=== PATIENT | female | born 1945 | race Caucasian/White ===

== ENCOUNTER 2024-01-30 14:09 | Outpatient (REF) | payer MEDICARE, SELFPAY ==
--- NOTE | ~2024-01-30 | XR_ITS ---
EXAMINATION: XR CHEST CLINICAL INFORMATION: Other specified symptoms and signs involving the circulatory system. COMPARISON: None available. TECHNIQUE: 2 views of the chest were obtained. FINDINGS: Degenerative changes in the thoracic spine. There is no gross pneumothorax. S-shaped thoracolumbar scoliosis. Heart size within normal limits. No pleural effusion. Mild, left greater than right, bibasilar patchy opacities likely represent atelectasis/scar, although an inflammatory/infectious process should also be considered. XR/XR chest 2V IMPRESSION: Mild, left greater than right, bibasilar patchy opacities likely represent atelectasis/scar, although an inflammatory/infectious process should also be considered.
== END 2024-01-30 14:10 | disposition home or self-care (01) ==
LOC: HO.XRAY 14:09
PROVIDERS: PCP Internal Medicine; Visit Provider Hospitalist
DX: R09.89 Other specified symptoms and signs involving the circulatory and respiratory systems (principal); J45.40 Moderate persistent asthma, uncomplicated
CPT/HCPCS: 71046; 99202

== ENCOUNTER 2024-01-30 14:09 | Outpatient (AMB) | payer MEDICARE, SELFPAY ==
[2024-01-30 14:14] VITALS: BP 120/60; PULSE 80; O2SAT 98; BMI 33.5
--- NOTE | 2024-01-30 14:14 | MHC.OFFVIS ---
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 The patient is an 79 year woman with known history of asthma. The patient had been followed closely by a local paraprofessional education assistant who since retired. Patient states that overall she has been doing very well from a respiratory status. She does have her occasional flare-up does require an antibiotics and rednisone. she does have a maintenance inhaler, Bevespi. She does use it as needed basis. Overall the patient is very functional. Denies any underlying respiratory Symptoms at this time. on examination the patient does have some minimal left base. Therefore will go ahead and request a chest x-ray this time. Clinically the patient is doing well without any symptoms. Will probably have her do a spirometry during the next visit. otherwise patient is without any other complaints. I do believe that she will benefit from a different inhaler. Although right now she still has to Bevespi inhalers at home. Therefore will continue to use which she has available specially since she is doing well from a respiratory status at this time. Will follow-up in 4-6 months. If the patient develops any worsening symptoms prior to that she will call for an earlier assessment. [facility] Medical History (Updated 02/01/24 @ 23:26 by Fernando Khan MD) Asthma Chest crackles Social History (Updated 01/30/24 @ 14:21 by KANDIS Kaiser) Patient Tobacco Use Status: Never used Tobacco Review of Systems Const Denies fever(s) Eyes Reports no additional complaints ENT Reports nasal congestion Card Denies chest pain Resp Reports cough and Denies wheezing Musc Reports no additional complaints Skin/Breast Denies rash Neuro Reports no additional complaints Aller/Immun Denies wheezing Physical Exam Vital Signs: Last Vital Signs Pulse 80 01/30/24 14:14 BP 120/60 01/30/24 14:14 Pulse Ox 98 01/30/24 14:14 Oxygen Delivery Method Room Air 01/30/24 14:14 BMI result Body Mass Index 33.5 Const General: comfortable HEENT Head: Yes normocephalic Neck Neck: Yes supple Chest Chest palpation & inspection: normal inspection of the chest Resp Effort & Inspection: normal respiratory effort Auscultation: crackles and diminished lung sounds Cardio Heart sounds: S1 normal heart sound present and S2 normal heart sound present GI Palpation (GI): Soft to palpation Skin General skin exam: no rashes or lesions noted Extrem General: Yes no clubbing, cyanosis or edema Assessment & Plan Assessment & Plan (1) Chest crackles: Code(s): R09.89 - Other specified symptoms and signs involving the circulatory and respiratory systems (2) Asthma: Code(s): J45.909 - Unspecified asthma, uncomplicated Qualifiers: Asthma severity: moderate Asthma persistence: persistent Asthma complication type: uncomplicated Qualified Code(s): J45.40 - Moderate persistent asthma, uncomplicated Plan CXR Continue Bevespi for now, would either add ICS or change to ICS/LABA combination CARLOS as needed Spirometry during the next visit F/u 4-6 months or sooner if worsening symptoms Orders: Orders XR chest 2V 01/30/24 R09.89 - Other specified symptoms and signs involving the circulatory and respiratory systems Coding Level of Care Code New Pt Level 4 (96941) Diagnoses Chest crackles R09.89 Moderate persistent asthma without complication J45.40 Asthma severity: moderate Asthma persistence: persistent Asthma complication type: uncomplicated
== END 2024-01-30 14:54 | disposition home or self-care (01) ==
PROVIDERS: PCP Internal Medicine; Visit Provider Hospitalist
DX: R09.89 Other specified symptoms and signs involving the circulatory and respiratory systems (principal); J45.40 Moderate persistent asthma, uncomplicated
CPT/HCPCS: 99204

== ENCOUNTER 2024-07-14 15:25 | Outpatient (AMB) | payer MEDICARE, SELFPAY ==
--- NOTE | 2024-07-14 15:37 | MHC.OFFVIS ---
Vital Signs 07/14/24 15:39 Height 4 ft 11 in Weight 160 lb BMI 32.3 BP 118/84 Blood Pressure Location Lt brachial Position Sitting Pulse 83 Pulse Source Pulse Oximeter Pulse Oximetry (%) 100 Oxygen Delivery Method Room Air Intake Visit Reasons: productive cough, chest congestion Allergies Sulfa (Sulfonamide Antibiotics) Allergy (Severe, Verified 07/14/24 15:44) Rash HPI HPI productive cough, chest congestion: Details: Lina is a pleasant 79 year old, never smoker, with underlying asthma. She is under the care of Dr. Khan and presents for an acute visit today. She reports being treated with Augmentin x 7 days, finishing yesterday for sore throat and chest congestion, chills and fever highest 104 last Friday. Negative for COVID, flu and RSV. She has had resolution of fever, chills and sore throat however asthma symptoms persist. For the last 5 days she reports worsening dyspnea on exertion, wheezing and cough, occasionally with yellow sputum. She is prescribed Bevespi however does not use consistently. She started using the past few days with minimal effect. [facility] Medical History (Updated 07/14/24 @ 16:31 by Julianne Benjamin NP) Asthma Chest crackles Social History Patient Tobacco Use Status: Never used Tobacco Review of Systems Const Denies excessive sweating, Denies headache(s) and Denies night sweats Eyes Denies dry eyes, Denies irritation and Denies itchy eyes ENT Reports Normal hearing present, Denies headache(s), Denies nasal congestion, Denies nasal discharge, Denies post nasal drip and Denies sore throat Card Denies chest pain, Denies chest pain at rest, Denies chest pain with activity, Denies claudication, Denies leg edema, Denies orthopnea and Denies paroxysmal nocturnal dyspnea Resp Denies chest congestion, Denies excessive phlegm production, Denies pain on inspiration, Denies pain with cough and Denies stridor Musc Denies myalgias Neuro Reports Normal hearing present and Denies headache(s) Endo Denies excessive sweating Kashif/Lymph Denies lymphadenopathy Aller/Immun Denies itchy eyes and Denies seasonal rhinorrhea Physical Exam Vital Signs: Last Vital Signs Pulse 83 07/14/24 15:39 BP 118/84 07/14/24 15:39 Pulse Ox 100 07/14/24 15:39 Oxygen Delivery Method Room Air 07/14/24 15:39 BMI result Body Mass Index 32.3 Const General: cooperative, healthy appearing, comfortable, no acute distress, well developed and alert Nutritional Appearance: obese Orientation/consciousness: patient oriented x3 Limitations: no limitations HEENT Head: Yes normal to inspection, Yes normocephalic and Yes atraumatic Ears: hearing grossly normal bilaterally and external ears normal Eyes General: appearance normal, both eyes and all related structures Eyelids: Yes eyelids normal Sclerae: sclerae normal EOM: EOMs intact bilaterally Neck Neck: Yes normal visual inspection and Yes no lymphadenopathy Lymphatic: no lymphadenopathy noted Chest Chest palpation & inspection: normal inspection of the chest Resp Effort & Inspection: normal respiratory effort, able to speak in complete sentences, no audible wheezes, Actively coughing Quality: dry, no stridor, not tachypneic, no tripod positioning and no use of accessory muscles Auscultation: wheezes (moderately improved with albuterol neb) expiratory wheezes and throughout Cardio Jugular venous distension: no JVD Rate: regular rate Rhythm: regular rhythm Skin Other: warm, dry General skin exam: no rashes or lesions noted Neuro General: patient oriented x3 Cranial nerves: Yes Normal hearing present Cognition (Neuro): normal cognition Gait exam (Neuro): Normal gait present Extrem General: Yes normal to inspection, Yes capillary refill normal, Yes no clubbing, cyanosis or edema and Yes no pedal edema Psych Appearance: grossly normal and well kempt Speech and movement: Normal speech and movement present and Clear speech present Affect: normal affect Attitude: cooperative Thought process: Normal thought process present Thought content: Normal thought content present Insight: Good insight present (Psych) Judgement: Good judgement present (Psych) Office Procedures Nebulizer Treatment Nebulizer Treatment [id number]/MDI RX initial, or Nebulizer Subsequent Treatment Office Meds albuterol sulfate 2.5 mg/3 mL (0.083 %) solution for nebulization Performing Provider: Julianne Benjamin NP Performing Location: [facility] [place] [facility] [place] [facility] Administered by: Genny Montenegro LPN on 07/14/24 16:37 Dose Route Admin Location Dispensed Lot Number Expiration Date [facility] Fabrication Supervisor 2.5 mg inhalation 3 mL [id number] 10/09/24 4328-9845-59 [facility] Assessment & Plan Assessment & Plan (1) Cough: Code(s): R05.9 - Cough, unspecified Category: Medical (2) Asthma: Code(s): J45.909 - Unspecified asthma, uncomplicated Category: Medical Qualifiers: Asthma severity: moderate Asthma persistence: persistent Asthma complication type: uncomplicated Qualified Code(s): J45.40 - Moderate persistent asthma, uncomplicated Plan Lina presents with acute asthma exacerbation. She was given albuterol neb in office with moderate improvement. Will send prednisone and switch Bevespi to Breo. Discussed importance of adherence as well as good oral hygiene to prevent thrush. She is aware if symptoms persist after completing prednisone to call office, if worsen seek emergent care. Will also send for CXR as persistent cough despite recent antibiotic to assess for infectious component. All questions were answered and patient is in agreement of plan. Will follow up with Dr. Khan for regularly scheduled appointment. Orders: Orders XR chest 2V Today R05.9 - Cough, unspecified AMB Nebulizer Treatment Today J45.40 - Moderate persistent asthma, uncomplicated Medications: New prednisone 40 mg (2 x 20 mg) PO DAILY 10 tabs 0RF fluticasone furoate-vilanterol 100-25 mcg/dose (Breo Ellipta) stop bevespi, start breo 1 inh inhalation DAILY 60 ea 3RF Coding Level of Care Code Est Pt Level 4 (11786) Diagnoses Cough R05.9 Moderate persistent asthma without complication J45.40 Asthma severity: moderate Asthma persistence: persistent Asthma complication type: uncomplicated CPT Codes Nebulizer Treatment - Nebulizer Treatment, initial or subsequent: [id number]/MDI RX initial, or Nebulizer Subsequent Treatment ([id number])
[2024-07-14 15:39] VITALS: BP 118/84; PULSE 83; O2SAT 100; BMI 32.3
== END 2024-07-14 16:41 | disposition home or self-care (01) ==
PROVIDERS: PCP Internal Medicine; Visit Provider Nurse Practitioner Family
DX: R05.9 Cough, unspecified (principal); J45.40 Moderate persistent asthma, uncomplicated
CPT/HCPCS: 99214

== ENCOUNTER → 2024-07-14 15:25 | Outpatient (BNVA) | payer MEDICARE, SELFPAY | PROVIDERS: PCP Internal Medicine; Visit Provider Nurse Practitioner Family | DX: R05.9 Cough, unspecified (principal); J45.40 Moderate persistent asthma, uncomplicated | CPT/HCPCS: 94640; 99212 ==

== ENCOUNTER 2024-07-30 10:45 | Outpatient (AMB) | payer MEDICARE, SELFPAY ==
[2024-07-30 10:58] VITALS: BP 128/60; PULSE 73; O2SAT 99; BMI 32.3
--- NOTE | 2024-07-30 10:58 | A.OFFVIS_ITS ---
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 The patient had been followed closely by a local registered nurse first assistant who since retired. Patient states that overall she has been doing very well from a respiratory status. She does have her occasional flare-up does require an antibiotics and rednisone. she does have a maintenance inhaler, Bevespi. She does use it as needed basis. Overall the patient is very functional. Denies any underlying respiratory Symptoms at this time. on examination the patient does have some minimal left base. Therefore will go ahead and request a chest x-ray this time. Clinically the patient is doing well without any symptoms. Will probably have her do a spirometry during the next visit. otherwise patient is without any other complaints. I do believe that she will benefit from a different inhaler. Although right now she still has to Bevespi inhalers at home. Therefore will continue to use which she has available specially since she is doing well from a respiratory status at this time. Will follow-up in 4-6 months. If the patient develops any worsening symptoms prior to that she will call for an earlier assessment. 07/30/2024 the patient is here for a follow-up visit. The patient is still not feeling well. Apparently several weeks ago she started developing URI like symptoms. She was evaluated and given a course of antibiotics. Then she did follow-up with Pulmonary. She did have some wheezing in an asthma exacerbation secondary to her likely viral syndrome in that point she was placed on prednisone. When she went on prednisone her symptoms improved dramatically. She did feel better. She also continue her respiratory therapy. However then she completed the prednisone her symptoms have slowly coming back. She is concerned she is going to going backwards. She is coughing productive in nature. She did finish a course of Augmentin already. She has not taking any antibiotics to cover atypicals. Therefore a Z-Basilio would be reasonable for her. She does have some wheezing on examination. Does have prolonged expiratory phase but otherwise stable. I did review her last chest x-ray that she had back in 07/15/2024 demonstrating no acute disease which is reassuring. [facility] Medical History (Updated 08/01/24 @ 20:42 by Fernando Khan MD) Bronchitis Asthma Chest crackles Social History Patient Tobacco Use Status: Never used Tobacco Review of Systems Const Denies fever(s) Eyes Reports no additional complaints ENT Reports nasal congestion Card Denies chest pain Resp Reports chest congestion, Reports cough and Reports wheezing Musc Reports no additional complaints Skin/Breast Denies rash Neuro Reports no additional complaints Aller/Immun Reports wheezing Physical Exam Vital Signs: Last Vital Signs Pulse 73 07/30/24 10:58 BP 128/60 07/30/24 10:58 Pulse Ox 99 07/30/24 10:58 Oxygen Delivery Method Room Air 07/30/24 10:58 BMI result Body Mass Index 32.3 Const General: comfortable HEENT Head: Yes normocephalic Neck Neck: Yes supple Chest Chest palpation & inspection: normal inspection of the chest Resp Effort & Inspection: normal respiratory effort and prolonged expiratory phase Auscultation: wheezes and diminished lung sounds Cardio Heart sounds: S1 normal heart sound present and S2 normal heart sound present GI Palpation (GI): Soft to palpation Skin General skin exam: no rashes or lesions noted Extrem General: Yes no clubbing, cyanosis or edema Assessment & Plan Assessment & Plan (1) Asthma: Code(s): J45.909 - Unspecified asthma, uncomplicated Category: Medical Qualifiers: Asthma complication type: with acute exacerbation Asthma persistence: persistent Asthma severity: moderate Qualified Code(s): J45.41 - Moderate persistent asthma with (acute) exacerbation (2) Chest crackles: Code(s): R09.89 - Other specified symptoms and signs involving the circulatory and respiratory systems Category: Medical (3) Bronchitis: Code(s): J40 - Bronchitis, not specified as acute or chronic Category: Medical (4) Cough: Code(s): R05.9 - Cough, unspecified Category: Medical Qualifiers: Cough type: subacute Qualified Code(s): R05.2 - Subacute cough Plan start Prednisone taper start Azithromycin continue Breo consider LAMA CARLOS as needed F/u 2-3 months or sooner if worsening symptoms Medications: New prednisone PO daily; Take 2 tabs daily x 5 days, then 1 tab daily x 5 days 10 days 15 tabs 0RF azithromycin 500 mg PO DAILY 5 days 5 tabs 0RF Coding Level of Care Code Est Pt Level 4 (02907) Diagnoses Moderate persistent asthma with acute exacerbation J45.41 Asthma complication type: with acute exacerbation Asthma persistence: persistent Asthma severity: moderate Chest crackles R09.89 Bronchitis J40 Subacute cough R05.2 Cough type: subacute Time Spent (min) 17
== END 2024-07-30 11:24 | disposition home or self-care (01) ==
PROVIDERS: PCP Internal Medicine; Visit Provider Hospitalist
DX: J45.41 Moderate persistent asthma with (acute) exacerbation (principal); R09.89 Other specified symptoms and signs involving the circulatory and respiratory systems; J40 Bronchitis, not specified as acute or chronic; R05.2 Subacute cough
CPT/HCPCS: 99214

== ENCOUNTER → 2024-07-30 10:45 | Outpatient (BNVA) | payer MEDICARE, SELFPAY | PROVIDERS: PCP Internal Medicine; Visit Provider Hospitalist | DX: J45.41 Moderate persistent asthma with (acute) exacerbation (principal); J40 Bronchitis, not specified as acute or chronic; R09.89 Other specified symptoms and signs involving the circulatory and respiratory systems; R05.2 Subacute cough | CPT/HCPCS: 99212 ==

== ENCOUNTER 2025-01-31 11:18 | Outpatient (REF) | payer MEDICARE, SELFPAY ==
--- NOTE | ~2025-01-31 | XR_ITS ---
EXAMINATION: XR CHEST 2 VIEWS HISTORY: R05.2 - Subacute cough COMPARISON: Comparison is made with the prior examination dated 01/30/2024. FINDINGS: PA and lateral views of the chest are submitted. The lungs are expanded and clear. There is no pleural effusion, pneumothorax, or pulmonary vascular congestion. The heart is normal in size. There is degenerative disc disease and scoliosis of the spine. XR/XR chest 2V IMPRESSION: No acute cardiopulmonary abnormality. Electronically signed by: Sloan Choi MD 02/01/2025 08:30 AM EDT
== END 2025-01-31 11:19 | disposition home or self-care (01) ==
LOC: HO.XRAY 11:18
PROVIDERS: PCP Internal Medicine; Visit Provider Hospitalist
DX: R09.89 Other specified symptoms and signs involving the circulatory and respiratory systems (principal); R05.2 Subacute cough
CPT/HCPCS: 71046; 99212

== ENCOUNTER 2025-01-31 11:18 | Outpatient (AMB) | payer MEDICARE, SELFPAY ==
[2025-01-31 11:21] VITALS: BP 128/76; PULSE 94; O2SAT 96; BMI 32.5
--- NOTE | 2025-01-31 11:21 | A.OFFVIS_ITS ---
Vital Signs 01/31/25 11:21 Height 4 ft 11 in Weight 160 lb 14.999 oz BMI 32.5 BP 128/76 Blood Pressure Location Rt brachial Position Sitting Pulse 94 Pulse Source Pulse Oximeter Pulse Oximetry (%) 96 Oxygen Delivery Method Room Air Intake Visit Reasons: Chronic Bronchitis Allergies Sulfa (Sulfonamide Antibiotics) Allergy (Severe, Verified 01/31/25 11:23) Rash HPI Comments Details: The patient is an 80 year woman with known history of asthma. 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 Patient states that overall she has been doing very well from a respiratory status. She does have her occasional flare-up does require an antibiotics and rednisone. she does have a maintenance inhaler, Bevespi. She does use it as needed basis. Overall the patient is very functional. Denies any underlying respiratory Symptoms at this time. on examination the patient does have some minimal left base. Therefore will go ahead and request a chest x-ray this time. Clinically the patient is doing well without any symptoms. Will probably have her do a spirometry during the next visit. otherwise patient is without any other complaints. I do believe that she will benefit from a different inhaler. Although right now she still has to Bevespi inhalers at home. Therefore will continue to use which she has available specially since she is doing well from a respiratory status at this time. Will follow-up in 4-6 months. If the patient develops any worsening symptoms prior to that she will call for an earlier assessment. 07/30/2024 the patient is here for a follow-up visit. The patient is still not feeling well. Apparently several weeks ago she started developing URI like symptoms. She was evaluated and given a course of antibiotics. Then she did follow-up with Pulmonary. She did have some wheezing in an asthma exacerbation secondary to her likely viral syndrome in that point she was placed on prednisone. When she went on prednisone her symptoms improved dramatically. She did feel better. She also continue her respiratory therapy. However then she completed the prednisone her symptoms have slowly coming back. She is concerned she is going to going backwards. She is coughing productive in nature. She did finish a course of Augmentin already. She has not taking any antibiotics to cover atypicals. Therefore a Z-Basilio would be reasonable for her. She does have some wheezing on examination. Does have prolonged expiratory phase but otherwise stable. I did review her last chest x-ray that she had back in 07/15/2024 demonstrating no acute disease which is reassuring. 01/31/2025 the patient is here for a pulmonary follow-up visit. Since we last spoke the patient developed COVID-19 for the 1st time. She was very ill initially stayed home and therefore couple days. Then she went to see her primary care where she was diagnosed with COVID-19. The patient was having worsening cough. Also some chest tightness. The patient also complained of loss of taste and smell and ultimately started getting some dizziness likely consistent with vertigo. She went to followed up with the primary care doctor. Apparently she has vertigo secondary to the COVID-19. She is in the process of starting vestibular therapy. Her cough is somewhat better. She had call the office we center course of doxycycline. She did take it although she still has some congestion. Her respiratory exam is diminished. She still having some post exhalation coughing. She does not like the Breo. Does not feel like it is working for. Therefore, will switch over to Breztri and also will provide her with a Z-Basilio to complete treating her lower respiratory infection. The patient will go for chest x-ray today. I will call her if there is any abnormalities otherwise will follow-up in 4 months. If she has any issues prior to that she will coughing earlier assessment. [facility] Medical History (Updated 08/01/24 @ 20:42 by Fernando Khan MD) Bronchitis Asthma Chest crackles Social History Patient Tobacco Use Status: Never used Tobacco Review of Systems Const Denies fever(s) Eyes Reports no additional complaints ENT Reports nasal congestion Card Denies chest pain Resp Reports chest congestion, Reports cough and Reports wheezing Musc Reports no additional complaints Skin/Breast Denies rash Neuro Reports no additional complaints Aller/Immun Reports wheezing Physical Exam Vital Signs: Last Vital Signs Pulse 94 01/31/25 11:21 BP 128/76 01/31/25 11:21 Pulse Ox 96 01/31/25 11:21 Oxygen Delivery Method Room Air 01/31/25 11:21 BMI result Body Mass Index 32.5 Const General: comfortable HEENT Head: Yes normocephalic Neck Neck: Yes supple Chest Chest palpation & inspection: normal inspection of the chest Resp Effort & Inspection: normal respiratory effort and prolonged expiratory phase Auscultation: no wheezes and diminished lung sounds Cardio Heart sounds: S1 normal heart sound present and S2 normal heart sound present GI Palpation (GI): Soft to palpation Skin General skin exam: no rashes or lesions noted Extrem General: Yes no clubbing, cyanosis or edema Assessment & Plan Assessment & Plan (1) Asthma: Code(s): J45.909 - Unspecified asthma, uncomplicated Category: Medical Qualifiers: Asthma complication type: with acute exacerbation Asthma persistence: persistent Asthma severity: moderate Qualified Code(s): J45.41 - Moderate persistent asthma with (acute) exacerbation (2) Cough: Code(s): R05.9 - Cough, unspecified Category: Medical Qualifiers: Cough type: subacute Qualified Code(s): R05.2 - Subacute cough (3) Bronchitis: Code(s): J40 - Bronchitis, not specified as acute or chronic Category: Medical Plan start Azithromycin stop Breo start Breztri CARLOS as needed CXR F/u 6 months or sooner if worsening symptoms Orders: Orders XR chest 2V Today R05.2 - Subacute cough Medications: New mujattunob-vdfpplzk-bkadnauhkx 160-9-4.8 mcg/actuation (Breztri Aerosphere) 2 inhalations inhalation BID 10.7 grams 6RF prednisone PO daily; Take 2 tabs daily x 5 days, then 1 tablet daily x 5 days 15 tabs 0RF 10 days azithromycin 500 mg PO DAILY 5 tabs 0RF 5 days Discontinued fluticasone furoate-vilanterol 100-25 mcg/dose (Breo Ellipta) Discontinued Reason: Doctor's Order 1 ea PO DAILY 60 ea 0RF Coding Level of Care Code Est Pt Level 4 (49680) Complex EM visit Add On G2211 Diagnoses Moderate persistent asthma with acute exacerbation J45.41 Asthma complication type: with acute exacerbation Asthma persistence: persistent Asthma severity: moderate Subacute cough R05.2 Cough type: subacute Bronchitis J40 Time Spent (min) 17
== END 2025-01-31 11:56 | disposition home or self-care (01) ==
LOC: HO.HPS 11:19
PROVIDERS: PCP Internal Medicine; Visit Provider Hospitalist
DX: J45.41 Moderate persistent asthma with (acute) exacerbation (principal); R05.2 Subacute cough; J40 Bronchitis, not specified as acute or chronic
CPT/HCPCS: 99214; G2211

== ENCOUNTER → 2025-01-31 11:58 | Outpatient (BNV) | payer MEDICARE, SELFPAY | PROVIDERS: PCP Internal Medicine; Visit Provider Radiology Diagnostic Radiology | DX: R05.2 Subacute cough (principal) | CPT/HCPCS: 71046 ==

== ENCOUNTER 2025-03-17 08:44 | Outpatient (REF) | payer MEDICARE, SELFPAY ==
--- OUTSIDE RECORDS SUMMARY | 2025-03-22 09:06 | XMS_ITS | Patient Health Record ---
Author Organization [facility] Address [address] [place] [address] Support Name Relationship Address Phone LEMUEL CORBETT Guarantor Unknown [phone] Reason For Referral No Information Medications Medication SIG (Take, Route, Frequency, Duration) Notes Start Date End Date Status Flagyl 250MG 1 ORAL three times daily for 7 Tiburcio-MJ 2011 Active Problems Problem Type SNOMED Code ICD Code Onset Dates Problem Status W/U Status Risk Notes Problem Diverticulosis o f colon (without mention of hemorrhage) (562.10) Active confirmed Other Problem Gynecological examination normal (395473034331580) Routine gynecological examination (V72.31) Active confirmed Diag Problem Dietary management surveillance (348336408) Dietary surveillance and counseling (V65.3) Active confirmed Diag Problem Exercises teaching, guidance, and counseling (045694553) Exercise counseling (V65.41) Active confirmed Diag Plan Of Treatment No Information Insurance Providers Payer Name Payer Address Payer Phone Subscriber Number Group Number Insured Name Patient Relationship to Insured Coverage Start Date Coverage End Date BS MEDICARE PPO [address] [place] [address] [id number] LEMUEL CORBETT Self - patient is the insured
== END 2025-03-17 08:45 | disposition home or self-care (01) ==
LOC: HO.HOSX 08:44
PROVIDERS: Visit Provider Orthopaedic Surgery
DX: Z13.89 Encounter for screening for other disorder (principal)

== ENCOUNTER 2025-03-31 10:46 | Outpatient (AMB) | payer MEDICARE, SELFPAY ==
[2025-03-31 10:49] VITALS: BMI 32.3
--- NOTE | 2025-03-31 10:49 | MHC.OFFVIS ---
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 The patient states that for the last few years she has gotten cortisone injections which gave her good relief. She denies any locking or giving way. She continues to stay as active as possible. She does take Tylenol as needed which gives her fairly good relief. She has not had a viscosupplementation injection. Allergies Sulfa (Sulfonamide Antibiotics) Allergy (Severe, Verified 03/31/25 10:50) Rash Medication List - Last Reconciled 03/31/25 by David Carlson MD [id number] 160-9-4.8 mcg/actuation (Breztri Aerosphere) 2 inhalations inhalation BID cholecalciferol (vitamin D3) 50 mcg PO DAILY clonazepam (Klonopin) 0.5 mg PO BEDTIME PRN tramadol 50 mg PO BID PRN PFSH Medical History (Updated 03/31/25 @ 11:16 by David Carlson MD) Bronchitis Asthma Chest crackles Social History Patient Tobacco Use Status: Never used Tobacco Physical Exam Vital Signs: BMI result Body Mass Index 32.3 Const Other: Well-nourished well-developed very friendly female awake alert and oriented x3 in no acute distress Extrem Other: Bilateral lower extremity examination shows good capillary refill, no skin lesions noted, normal sensation light touch Right knee examination shows a minimal effusion, palpable crepitus with range of motion, pain with range of motion, no instability Results Reviewed Results Reviewed: X-rays of the patient's right knee show joint space narrowing, subchondral sclerosis, osteophyte formation, no acute bony abnormalities Assessment & Plan Assessment & Plan (1) Osteoarthritis of right knee: Code(s): M17.11 - Unilateral primary osteoarthritis, right knee Category: Medical Plan Ms. East presents with right knee pain due to degenerative joint disease. I had a lengthy discussion with the patient regarding the treatment options. She wishes to hold off on right total knee replacement surgery for as long as possible. I agree with this plan. She will continue getting cortisone injections for now. If she does not get lasting relief from the cortisone injection she may be a candidate for viscosupplementation injection. She will follow up with me on an as-needed basis. Feel free to call me at any time should questions regarding her orthopedic management arise. Thank you very much for asking me to see this very friendly patient. I spent 20 minutes in reviewing the patient's records and imaging studies, seeing the patient and documenting in the medical record. Orders: Orders XR knee RT 3V Today M25.561 - Pain in right knee Coding Level of Care Code New Pt Level 3 (97293) Complex EM visit Add On G2211 Diagnoses Osteoarthritis of right knee M17.11
--- OUTSIDE RECORDS SUMMARY | 2025-03-31 11:30 | XMS_ITS | Patient Health Record ---
Author Organization [facility] Address [address] [place] [address] Support Name Relationship Address Phone LEMUEL CORBETT Guarantor Unknown Reason For Referral No Information Medications Medication SIG (Take, Route, Frequency, Duration) Notes Start Date End Date Status Flagyl 250MG 1 ORAL three times daily for 7 Tiburcio-MJ 2011 Active Problems Problem Type SNOMED Code ICD Code Onset Dates Problem Status W/U Status Risk Notes Problem Diverticulosis of colon (finding) (208821854) Diverticulosis of colon (without mention of hemorrhage) (562.10) Active confirmed Other Problem Gynecological examination normal (858025306996158) Routine gynecological examination (V72.31) Active confirmed Diag Problem Dietary management surveillance (864473557) Dietary surveillance and counseling (V65.3) Active confirmed Diag Problem Exercise counseling (V65.41) Active confirmed Diag Plan Of Treatment No Information Insurance Providers Payer Name Payer Address Payer Phone Subscriber Number Group Number Insured Name Patient Relationship to Insured Coverage Start Date Coverage End Date BCBS MEDICARE PPO [address] [place] [address] [phone] [id number] LEMUEL CORBETT Self - patient is the insured
== END 2025-03-31 11:14 | disposition home or self-care (01) ==
LOC: HO.HOS 10:47
PROVIDERS: PCP Internal Medicine; Visit Provider Orthopaedic Surgery
DX: M17.11 Unilateral primary osteoarthritis, right knee (principal)
CPT/HCPCS: 99203; G2211

== ENCOUNTER → 2025-03-31 10:48 | Outpatient (BNV) | payer MEDICARE, SELFPAY | PROVIDERS: Visit Provider Radiology Diagnostic Radiology | DX: M17.11 Unilateral primary osteoarthritis, right knee (principal) | CPT/HCPCS: 73562 ==

== ENCOUNTER 2025-03-31 11:40 | Outpatient (REF) | payer MEDICARE, SELFPAY ==
--- NOTE | ~2025-03-31 | XR_ITS ---
EXAMINATION: XR KNEE, RIGHT CLINICAL INFORMATION: M25.561 - Pain in right knee COMPARISON: None available. TECHNIQUE: AP lateral and sunrise views of the right knee. FINDINGS: Joint space narrowing involving the medial lateral compartments and the patellofemoral joint. Marginal osteophyte formation and medial femoral condyle both the tibial plateaus and posterior superior and inferior patella. Sclerosis along the articular surface of the medial tibial plateau. No acute cortical disruption or malalignment. No suprapatellar bursa joint effusion. No lytic or blastic lesions. XR/XR knee RT 3V IMPRESSION: Tricompartmental osteoarthrosis, moderate to severe, involving mostly the medial compartment. Electronically signed by: Denver Kingsley MD 03/31/2025 01:49 PM EDT
--- OUTSIDE RECORDS SUMMARY | 2025-04-01 11:42 | XMS_ITS | Patient Health Record ---
Author Organization [facility] Address [address] [place] [address] Support Name Relationship Address Phone LEMUEL CORBETT Guarantor Unknown Reason For Referral No Information Medications Medication SIG (Take, Route, Frequency, Duration) Notes Start Date End Date Status Flagyl 250MG 1 ORAL three times daily for 7 Tiburcio-MJ 2011 Active Problems Problem Type SNOMED Code ICD Code Onset Dates Problem Status W/U Status Risk Notes Problem Diverticulosis of colon (finding) (393057445) Diverticulosis of colon (without mention of hemorrhage) (562.10) Active confirmed Other Problem Gynecological examination normal (240980011180335) Routine gynecological examination (V72.31) Active confirmed Diag Problem Dietary surveillance and counseling (V65.3) Active confirmed Diag Problem Exercises teaching, guidance, and counseling (531216006) Exercise counseling (V65.41) Active confirmed Diag Plan Of Treatment No Information Insurance Providers Payer Name Payer Address Payer Phone Subscriber Number Group Number Insured Name Patient Relationship to Insured Coverage Start Date Coverage End Date BCBS MEDICARE PPO [address] [place] [address] [id number] LEMUEL CORBETT Self - patient is the insured
== END 2025-03-31 11:41 | disposition home or self-care (01) ==
LOC: HO.HOSX 11:40
PROVIDERS: Visit Provider Orthopaedic Surgery
DX: M25.561 Pain in right knee (principal); M17.11 Unilateral primary osteoarthritis, right knee
CPT/HCPCS: 73562; 99202

== ENCOUNTER 2025-06-14 10:05 | Outpatient (AMB) | payer MEDICARE, SELFPAY ==
--- NOTE | 2025-06-14 10:10 | A.OFFVIS_ITS ---
Intake Visit Reasons: New prob- Left Knee pain Intake Note: Lina is an 80 year old female who presents with complaints of intermittent left knee pain. Patient had an injury a couple weeks from being seen at [facility] at 05/25. Patient states that when she feel she landed on her left knee. She notices that her pain is on the medial aspect of the knee. Patient states that she was placed in a knee brace which didn't help but she was able to get a knee sleeve which gives her relief. She has been icing with relief and tried Tylenol with mild relief. Allergies Sulfa (Sulfonamide Antibiotics) Allergy (Severe, Verified 06/14/25 10:36) Rash HPI HPI New prob- Left Knee pain: Details: Ms. East is an 80-year-old female who presents to the office today for evaluation of a left knee injury that she sustained on 05/10/2025. She was seen at [facility] on 05/25/2025. She states that x-rays were obtained in the provided her with a hinged knee brace. She reports that she was uneasy with the experience that she had there and wished to seek a 2nd opinion bringing her to our office here. She reports that the pain is mostly located along the medial aspect of the knee. The hinged knee brace did not offer the patient any relief. She was using a knee sleeve which did give her relief. She has been icing as well as using Tylenol with mild relief. [facility] Medical History (Updated 06/14/25 @ 14:32 by Paloma Cason PA-C) Bronchitis Asthma Chest crackles Social History (Updated 06/14/25 @ 10:37 by Kar Khan) Alcohol intake: current Alcohol intake frequency: holidays/special occasions only Patient Tobacco Use Status: Never used Tobacco Current occupational status: retired Current occupation: left hand dominant Review of Systems Const All systems reviewed & are unremarkable except as noted in HPI and below Physical Exam Const General: cooperative, healthy appearing and no acute distress Resp Effort & Inspection: normal respiratory effort and able to speak in complete sentences Extrem Other: Left knee normal to inspection. No ecchymosis, erythema or joint effusion. Very minimal tenderness to palpation along the lateral patella at the fracture site. More tenderness to palpation at the medial joint line. Patient is able to demonstrate range of motion 0-90 degrees. Able to dorsiflex and plantar flex. NVI. Psych Appearance: grossly normal Mental Status: mental status grossly normal Attitude: cooperative Assessment & Plan Assessment & Plan (1) Left patella fracture: Code(s): S82.002A - Unspecified fracture of left patella, initial encounter for closed fracture Category: Medical Plan Ms. East is an 80-year-old female who presents to the office today for evaluation of a left knee injury that she sustained in the beginning of May. She was seen at [facility] on 05/25/2025. She states that x-rays were obtained in the provided her with a hinged knee brace. She reports that she was uneasy with the experience that she had there and wished to seek a 2nd opinion bringing her to our office here. She reports that the pain is mostly located along the medial aspect of the knee. The hinged knee brace did not offer the patient any relief. She was using a knee sleeve which did give her relief. She has been icing as well as using Tylenol with mild relief. While in the office today, the patient presented with a knee brace similar to the playmaker that we carry in the office. I provided the patient with a Genumed knee brace off the shelf in which the patient was more comfortable in. Gentle range of motion to tolerance is acceptable at this stage 6 weeks post injury. She may continue to weightbear as tolerated. Additionally, I sent a prescription for ibuprofen 800 mg p.o. Q 8 hours p.r.n. pain # 90 to the [facility]. Patient was educated that she may take this along with Tylenol if needed. We did discuss the role of physical therapy, however, the patient has been ambulating without the use of any assistive devices. She reports very little discomfort at this time and she has good range of motion while in the office today. Therefore, physical therapy has been deferred at this time. She will follow up in 4 weeks with repeat x-rays, sooner if needed. X-rays of the left knee which were obtained while in the office today and were reviewed by me, Paloma Cason PA-C, revealed fracture of the lateral patella. Orders: Orders XR knee LT 3V Today M25.569 - Pain in unspecified knee Medications: New ibuprofen (IBU) 800 mg PO Q8H PRN 90 tabs 0RF pain Coding Level of Care Code New Pt Level 4 (58876) Diagnoses Left patella fracture S82.002A
--- OUTSIDE RECORDS SUMMARY | 2025-06-14 10:40 | XMS_ITS | Patient Health Record ---
Author Organization [facility] Address [address] [place] [address] Support Name Relationship Address Phone LEMUEL CORBETT Guarantor Unknown [phone] Reason For Referral No Information Medications Medication SIG (Take, Route, Frequency, Duration) Notes Start Date End Date Status Flagyl 250MG 1 ORAL three times daily; Duration: 7 Tiburcio-MJ 07/08/2012 Active Problems Problem Type SNOMED Code ICD Code Onset Dates Problem Status W/U Status Risk Notes Problem Diverticulosis of colon (finding) (234861588) Diverticulosis of colon (without mention of hemorrhage) (562.10) Active confirmed Other Problem Gynecological examination normal (054429714006456) Routine gynecological examination (V72.31) Active confirmed Diag Problem Dietary management surveillance (588756967) Dietary surveillance and counseling (V65.3) Active confirmed Diag Problem Exercises teaching, guidance, and counseling (822180092) Exercise counseling (V65.41) Active confirmed Diag Plan Of Treatment No Information Insurance Providers Payer Name Payer Address Payer Phone Subscriber Number Group Number Insured Name Patient Relationship to Insured Coverage Start Date Coverage End Date BS MEDICARE PPO [address] [place] [address] [id number] LEMUEL CORBETT Self - patient is the insured
--- OUTSIDE RECORDS SUMMARY | 2025-06-14 10:40 | XMS_ITS | Clinical Summary ---
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 Active clonazePAM (KLONOPIN) 0.5 MG tablet Take 0.5 mg by mouth as needed for anxiety. Active cyanocobalamin, vitamin B-12, (VITAMIN B-12 INJ) Inject as directed Every 2 Months, Every 8 Weeks, Every 60 Days. Active acetaminophen (TYLENOL ORAL) Take by mouth as needed. Active doxycycline hyclate (DORYX) 100 MG tablet Take 100 mg by mouth 2 (two) times a day. Active Active Problems Problem Noted Date Diagnosed Date Stress 08/04/2013 Overview (12/31/2014): Stress; passed Diverticulitis 02/03/2013 Overview (12/31/2014): Diverticulitis Bronchitis 02/03/2013 Overview (12/31/2014): Bronchitis; with bad colds Lyme disease 02/03/2013 Overview (12/31/2014): Lyme disease Family History Medical History Relation Comments Type 2 Diabetes Brother diabetes cesaritu s type 2 Uncoded Family History Father renal can cer Glaucoma Mother glaucoma; ??? Type 2 Diabetes Mother diabetes cesaritu s type 2 Relation Status Comments Brother Father Mother Social History Tobacco Use Types Packs/Day Years Used Date Smoking Tobacco: Never Smokeless Tobacco: Never Alcohol Use Standard Drinks/Week Comments Yes 3 (1 standard drink = 0.6 oz pur e alcohol) Education Answer Date Recorded Are you interested in more education? Not on philip e 03/07/2023 Are you concerned about learning? Not on file 03/07/2023 No 03/07/2023 No 03/07/2023 Digital Access Answer Date Recorded No 04/07/2023 No 04/07/2023 No 04/07/2023 Reliable internet access at home? Not on file 04/07/2023 Device with a working camera? Not on file Comments Unknown Sex and Gender Information Value Date Recorded Sex Assigned at Not on file Legal Sex Female 5:18 AM EST Gender Identity Not on file Sexual Orientation Not on file Last Filed Vital Signs Vital Sign Reading Time Taken Comments Blood Pressure 128/74 01/21/2019 1:35 PM EDT Pulse 98 01/21/2019 1:35 PM EDT Temperature 36.6 C (97.8 F) 10/05/2018 12:00 PM EST Respiratory Rate 16 01/21/2019 1:35 PM EDT Oxygen Saturation 95% 10/05/2018 12:00 PM EST Inhaled Oxygen Concentration - - Weight 78.5 kg (173 lb) 01/21/2019 1:35 PM EDT Height 149.9 cm (4' 11 ) 09/29/2018 8:47 AM EST Body Mass Index 34.94 09/29/2018 8:47 AM EST Plan of Treatment Health Maintenance Due Date Last Done Comments Adult Td,Tdap Booster 1943 DEPRESSION SCREENING 1955 PNEUMOCOCCAL VACCINES (50+ y ears) (1 of 1 - PCV) 1993 ZOSTER VACCINES (1 of 2) 1993 OSTEOPOROSIS SCREENING INITI AL (ONE-TIME) 01/17/2008 RSV VACCINE (1 - 1-dose 75+ series) 2018 COVID-19 VACCINE (2023-2 5 season) 2024 07/28/2021 HEPATITIS A VACCINES Aged Out No long er eligible based on patient's age to complete this topic HIB VACCINES Aged Out No longer eligi ble based on patient's age to complete this topic MENINGOCOCCAL VACCINES (ACWY) Aged Out No longer eligible based on patient's age to complete this topic MENINGOCOCCAL VACCINES (B) Aged Out N o longer eligible based on patient's age to complete this topic Medical Devices Implanted Type Area Stapler Machine Device Identifier Shelf Expiration Date Model / Serial / Lot Mesh Synthetic [id number] Abdominal Partially Absorbable Rectangle Polypropylene Ultrapro Bx/3ea - [id number] Implanted:Qty: 1 on 10/05/2018 by Rl Gottlieb MD, MPH at [facility] STANDARD Left: Inguinal JNJ ETHICON / DIVISION OF J 09/09/2023 [id number] / / [id number] Insurance MEDICARE PPO BLUE REPLACEMENT Advance Directives For more information, please contact: [phone] (9AM - 5PM [facility], Friday-Friday) * Full Code (Presumed) (Latest Code Status on File) Date Activated Date Inactivated Comments 10/05/2018 6:35 AM 10/05/2018 2:29 PM Care Teams 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 It is not the complete legal health record.[facility]
== END 2025-06-14 11:13 | disposition home or self-care (01) ==
LOC: HO.HOS 10:05
PROVIDERS: Visit Provider Physician Assistant
DX: S82.002A Unspecified fracture of left patella, initial encounter for closed fracture (principal)
CPT/HCPCS: 99213

== ENCOUNTER 2025-06-14 10:05 | Outpatient (REF) | payer MEDICARE, SELFPAY ==
--- NOTE | ~2025-06-14 | XR_ITS ---
EXAMINATION: XR KNEE, LEFT CLINICAL INFORMATION: M25.569 - Pain in unspecified knee COMPARISON: None available. TECHNIQUE: AP bilateral standing, sunrise and lateral views of the left knee. FINDINGS: There is no joint effusion. There is moderate amorphous calcification within both the medial and lateral meniscus. There is moderate extrusion of the medial meniscus and mild extrusion of the lateral. There is chondrocalcinosis involving patellar cartilage. There is mild narrowing of the medial and lateral joint spaces. There is severe narrowing of the lateral patellofemoral joint space. There is a bipartite patella with a smaller lateral ossification. There are large tricompartmental marginal osteophytes. 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 Electronically signed by: Sharif Phpips MD 06/14/2025 11:29 AM EDT
== END 2025-06-14 10:06 | disposition home or self-care (01) ==
LOC: HO.HOSX 10:05
PROVIDERS: Visit Provider Physician Assistant
DX: S82.002A Unspecified fracture of left patella, initial encounter for closed fracture (principal); M25.562 Pain in left knee; X58.XXXA Exposure to other specified factors, initial encounter
CPT/HCPCS: 73562; 99212

== ENCOUNTER → 2025-06-14 10:13 | Outpatient (BNV) | payer MEDICARE, SELFPAY | PROVIDERS: Visit Provider Radiology Diagnostic Radiology | DX: M23.362 Other meniscus derangements, other lateral meniscus, left knee (principal) | CPT/HCPCS: 73562 ==

== ENCOUNTER 2025-07-22 08:15 | Outpatient (REF) | payer MEDICARE, SELFPAY ==
--- NOTE | ~2025-07-22 | XR_ITS ---
EXAMINATION: XR KNEE, LEFT CLINICAL INFORMATION: M25.569 - Pain in unspecified knee COMPARISON: June 14, 2025 TECHNIQUE: AP and lateral views of the left knee. FINDINGS: There is joint space narrowing involving the patellofemoral and the medial and lateral compartments with the moderate-sized marginal osteophyte formation both femoral condyles and tibial plateaus and sclerosis along the articular surfaces. No acute cortical disruption. No gross malalignment. No gross suprapatellar bursa joint effusion. Consultations in the soft tissues mostly vascular. No lytic or blastic lesions. XR/XR knee LT 2V IMPRESSION: Tricompartmental osteoarthrosis/osteoarthritis, moderate to severe. Electronically signed by: Dnever Kingsley MD 07/22/2025 08:49 AM EDT
== END 2025-07-22 08:16 | disposition home or self-care (01) ==
LOC: HO.HOSX 08:15
PROVIDERS: Visit Provider Physician Assistant
DX: S82.002D Unspecified fracture of left patella, subsequent encounter for closed fracture with routine healing (principal); X58.XXXD Exposure to other specified factors, subsequent encounter
CPT/HCPCS: 73560; 99212

== ENCOUNTER 2025-07-22 08:37 | Outpatient (AMB) | payer MEDICARE, SELFPAY ==
--- NOTE | 2025-07-22 08:49 | MHC.OFFVIS ---
Vital Signs 07/22/25 08:53 Height 4 ft 11 in Weight 160 lb BMI 32.3 Intake Visit Reasons: OV-Left knee pain-w/xrays Intake Note: Lina is an 80 year old female who presents today for follow up status post Left Patellar Fracture. On 06/14/25 she was transitioned to a Genumed knee brace. she states that she is feeling better. Patient mentions that she is still doing one step and a time when she is going up and down the stairs. She reports that her knee brace is giving her relief and support. Allergies Sulfa (Sulfonamide Antibiotics) Allergy (Severe, Verified 07/22/25 08:53) Rash HPI HPI OV-Left knee pain-w/xrays: Details: Ms. East is an 80-year-old female who presents to the office today for routine follow-up status post left patellar fracture that occurred on 05/04/25. Patient reports that she will occasionally feel some discomfort along the anterior aspect of the knee but is overall doing very well. She has some reservations with stair climbing. She is concerned that there is a potential for fracture displacement and therefore she has been very cautious with this. She has been using her knee brace on and off. She is not wearing her knee brace to the office today. Overall she is doing very well. [facility] Medical History (Updated 06/14/25 @ 14:32 by Paloma Cason PA-C) Bronchitis Asthma Chest crackles Social History Alcohol intake: current Alcohol intake frequency: holidays/special occasions only Patient Tobacco Use Status: Never used Tobacco Current occupational status: retired Current occupation: left hand dominant Review of Systems Const All systems reviewed & are unremarkable except as noted in HPI and below Physical Exam Vital Signs: BMI result Body Mass Index 32.3 Const General: cooperative, healthy appearing and no acute distress Resp Effort & Inspection: normal respiratory effort and able to speak in complete sentences Extrem Other: Left knee normal to inspection. No ecchymosis, erythema or joint effusion. No tenderness to palpaion at the fracture site. Patient is able to demonstrate range of motion 0-110 degrees. Able to dorsiflex and plantar flex. NVI. Psych Appearance: grossly normal Mental Status: mental status grossly normal Attitude: cooperative Assessment & Plan Assessment & Plan (1) Left patella fracture: Code(s): S82.002A - Unspecified fracture of left patella, initial encounter for closed fracture Category: Medical Plan Ms. East is an 80-year-old female who presents to the office today for routine follow-up status post left patellar fracture that occurred on 05/04/25. Patient reports that she will occasionally feel some discomfort along the anterior aspect of the knee but is overall doing very well. She has some reservations with stair climbing. She is concerned that there is a potential for fracture displacement and therefore she has been very cautious with this. She has been using her knee brace on and off. She is not wearing her knee brace to the office today. Overall she is doing very well. I have recommended the patient return back to normal activities as tolerated. She is no longer having any pain or discomfort with deep palpation of the fracture site. She does have occasional discomfort which I believe is attributed to her osteoarthritis. She may wear the knee brace as needed. The patient reports that she has developed some apprehension with reciprocal stair climbing. I instructed the patient that this is perfectly safe to perform. She will attempt normal reciprocal stair climbing for the next 2 weeks. If she continues to struggle with the next step would be a referral to physical therapy. She will contact our office should she feel this is necessary by telephone and I am happy to place the order. She will follow up PRN, sooner if needed. X-rays of the left knee which were obtained while in the office today and were reviewed by me, Paloma Cason PA-C, revealed routine healing patellar fracture Orders: Orders XR knee LT 2V Today M25.569 - Pain in unspecified knee Coding Level of Care Code Est Pt Level 3 (95513) Diagnoses Left patella fracture S82.002A
[2025-07-22 08:53] VITALS: BMI 32.3
--- OUTSIDE RECORDS SUMMARY | 2025-07-22 09:16 | XMS_ITS | Encounter Summary ---
Author Organization [facility] Address [address] [facility] [address] [place] [address] Phone Care Team Providers Care Tile Layer Drainage Name Role Phone Jaspal Albrecht MD Primary Care P rovider Encounter Details Date Type Department Care Team (Late st Contact Info) Description 07/22/2018 Procedure Pass [facility] [address] [place] [address] Social History Tobacco Use Types Packs/Day Years Used Date Smoking Tobacco: Never Comments Unknown Sex and Gender Information Value Date Recorded Sex Assigned at Not on file Legal Sex Female 5:18 AM EST Gender Identity Not on file Sexual Orientation Not on file documented as of this encounter Plan of Treatment Not on file documented as of this encounter Visit Diagnoses Not on filedocumented in this encounter Care Teams Tile Layer Drainage Relationship Specialty Start Date End Date Jaspal Albrecht MD [address] [place] [address] PCP - General Pulmonary Disease 07/14/18 documented as of this encounter Additional Source Comments The information contained in this document represents components of the legal health record. It is not the complete legal health record.[facility]
--- OUTSIDE RECORDS SUMMARY | 2025-07-22 09:16 | XMS_ITS | Encounter Summary ---
Author Organization [facility] Address [address] [facility] [address] [place] [address] Phone Care Team Providers Care Hat Brim Curler Name Role Phone Jaspal Albrecht MD Primary Care P rovider Encounter Details Date Type Department Care Team (Late st Contact Info) Description 10/05/2018 Procedure Pass [facility] Periop [address] [place] [address] Social History Tobacco Use Types Packs/Day Years Used Date Smoking Tobacco: Never Smokeless Tobacco: Never Alcohol Use Standard Drinks/Week Comments Yes 3 (1 standard drink = 0.6 oz pur e alcohol) Comments Unknown Sex and Gender Information Value Date Recorded Sex Assigned at Not on file Legal Sex Female 5:18 AM EST Gender Identity Not on file Sexual Orientation Not on file documented as of this encounter Plan of Treatment Not on file documented as of this encounter Visit Diagnoses Not on filedocumented in this encounter Care Teams Hat Brim Curler Relationship Specialty Start Date End Date Jaspal Albrecht MD [address] [place] [address] PCP - General Pulmonary Disease 07/14/18 documented as of this encounter Additional Source Comments The information contained in this document represents components of the legal health record. It is not the complete legal health record.[facility]
--- OUTSIDE RECORDS SUMMARY | 2025-07-22 09:16 | XMS_ITS | Encounter Summary ---
Author Organization [facility] Address [address] [place] [address] Phone Care Team Providers Care Chef De Froid Name Role Phone Jaspal Albrecht MD Primary Care P rovider Reason for Referral * MRI/CAT Scan - Closed Specialty Diagnoses / Procedures Referred By Contac t Referred To Contact Procedures CT Head Outside (No Interpretation) Rl Gottlieb MD, MPH Phone: tel: fax: mailto:[email or web address] Referral ID Status Reason Start Date Expiration Date Visits Re quested Visits Authorized [id number] Closed 09/03/2018 09/03/2019 1 1 * MRI/CAT Scan - Closed Specialty Diagnoses / Procedures Referred By Contac t Referred To Contact Procedures CT Abdomen Outside (No Interpretation) Rl Gottlieb MD, MPH Phone: tel: fax: mailto:[email or web address] Referral ID Status Reason Start Date Expiration Date Visits Re quested Visits Authorized [id number] Closed 09/03/2018 09/03/2019 1 1 Encounter Details Date Type Department Care Team (Late st Contact Info) Description 09/03/2018 Transcribe Orders [facility] [address] [place] [address] Carlie Guzmann [address] [place] [address] [email or web address] Social History Tobacco Use Types Packs/Day Years Used Date Smoking Tobacco: Never Smokeless Tobacco: Never Comments Unknown Sex and Gender Information Value Date Recorded Sex Assigned at Not on file Legal Sex Female 5:18 AM EST Gender Identity Not on file Sexual Orientation Not on file documented as of this encounter Plan of Treatment Not on file documented as of this encounter Results * CT Abdomen Outside (No Interpretation) (06/29/2012 12:00 AM EDT) Narrative [facility] - 09/03/2018 5:12 PM EDT This study is for PACS storage only and not for interpretation. Rl Gottlieb MD, MPH IMG OUTSIDE IMAGIN G W/OUT INTERPRETATION Final Result Performing Organization Address [facility] de Phone Number [facility] * CT Head Outside (No Interpretation) (09/08/2006 12:00 AM EST) Narrative [facility] - 09/03/2018 5:12 PM EDT This study is for PACS storage only and not for interpretation. Rl Gottlieb MD, MPH IMG OUTSIDE IMAGIN G W/OUT INTERPRETATION Final Result Performing Organization Address [facility] de Phone Number [facility] documented in this encounter Visit Diagnoses Not on filedocumented in this encounter Care Teams Chef De Froid Relationship Specialty Start Date End Date Jaspal Albrecht MD [address] [place] [address] PCP - General Pulmonary Disease 07/14/18 documented as of this encounter Additional Source Comments The information contained in this document represents components of the legal health record. It is not the complete legal health record.[facility]
--- OUTSIDE RECORDS SUMMARY | 2025-07-22 09:16 | XMS_ITS | Encounter Summary ---
Author Organization [facility] Address [address] [facility] [address] [place] [address] Phone Care Team Providers Care Therapeutic Radiologist Name Role Phone Jaspal Albrecht MD Primary Care P rovider Encounter Details Date Type Department Care Team (Late st Contact Info) Description 07/22/2018 Procedure Pass [facility] and Women[facility]iology [address] [place] [address] Social History Tobacco Use Types Packs/Day Years [...] on filedocumented in this encounter Care Teams Therapeutic Radiologist Relationship Specialty Start Date End Date Jaspal Albrecht MD [address] [place] [address] PCP - General Pulmonary Disease 07/14/18 documented as of this encounter Additional Source Comments The information contained in this document represents components of the legal health record. It is not the complete legal health record.[facility]
--- OUTSIDE RECORDS SUMMARY | 2025-07-22 09:16 | XMS_ITS | Encounter Summary ---
Author Organization [facility] [place] [facility] Address [address] [place] [address] Phone Care Team Providers Care Regional Facilities Manager Name Role Phone Jaspal Albrecht MD Primary Care P [facility] Reason for Referral * MRI/CAT Scan - Closed Specialty Diagnoses / Procedures Referred By Contac t Referred To Contact Procedures CT Abdomen/Pelvis Outside (No Interpretation) Lubna Holloway MD Phone: tel: fax: mailto:[email or web address] Referral ID Status Reason Start Date Expiration Date Visits Re quested Visits Authorized [id number] Closed 07/22/2018 07/22/2019 1 1 * MRI/CAT Scan - Closed Specialty Diagnoses / Procedures Referred By Contac t Referred To Contact Procedures CT Abdomen/Pelvis Outside (No Interpretation) Lubna Holloway MD Phone: tel: fax: mailto:[email or web address] Referral ID Status Reason Start Date Expiration Date Visits Re quested Visits Authorized [id number] Closed 07/22/2018 07/22/2019 1 1 * MRI/CAT Scan - Closed Specialty Diagnoses / Procedures Referred By Contac t Referred To Contact Procedures CT Abdomen/Pelvis Outside (No Interpretation) Lubna Holloway MD Phone: tel: fax: mailto:[email or web address] Referral ID Status Reason Start Date Expiration Date Visits Re quested Visits Authorized [id number] Closed 07/22/2018 07/22/2019 1 1 Encounter Details Date Type Department Care Team (Late st Contact Info) Description 07/22/2018 Transcribe Orders [facility] [address] [place] [address] [place] [address] [place] [address] [email or web address] Social History Tobacco Use Types Packs/Day Years Used Date Smoking Tobacco: Never Comments Unknown Sex and Gender Information Value Date Recorded Sex Assigned at Not on file Legal Sex Female 5:18 AM EST Gender Identity Not on file Sexual Orientation Not on file documented as of this encounter Plan of Treatment Not on file documented as of this encounter Results * US Upper/Lower Extremity Non-Vascular Outside (No Interpretation) (07/22/2018 12:45 AM EDT) [facility]ative [facility] - 07/22/2018 9:34 AM EDT This study is for PACS storage only and not for interpretation. Lubna Holloway MD IMG OUTSIDE IMAGING W/OUT INTERP RETATION Final Result [facility] * CT Abdomen/Pelvis Outside (No Interpretation) (07/22/2018 12:30 AM EDT) Narrative [facility] - 07/22/2018 9:34 AM EDT This study is for PACS storage only and not for interpretation. Lubna BOWMAN OUTSIDE IMAGING W/OUT INTERP RETATION Final Result * CT Abdomen/Pelvis Outside (No Interpretation) (07/22/2018 12:15 AM EDT) Narrative [facility] - 07/22/2018 9:34 AM EDT This study is for PACS storage only and not for interpretation. us Lubna CHÁVEZG OUTSIDE IMAGING W/OUT INTERP RETATION Final Result * CT Abdomen/Pelvis Outside (No Interpretation) (07/22/2018 12:00 AM EDT) Narrative [facility] DOCUMENTATION - 07/22/2018 9:34 AM EDT This study is for PACS storage only and not for interpretation. us Lubna CHÁVEZG OUTSIDE IMAGING W/OUT INTERP RETATION Final Result documented in this encounter Visit Diagnoses Not on filedocumented in this encounter Care Teams Regional Facilities Manager Relationship Specialty Start Date End Date Jaspal Albrecht MD [address] [place] [address] PCP - General Pulmonary Disease 07/14/18 documented as of this encounter Additional Source Comments The information contained in this document represents components of the legal health record. It is not the complete legal health record.[facility] [place] [facility]
--- OUTSIDE RECORDS SUMMARY | 2025-07-22 09:16 | XMS_ITS | Patient Health Record ---
Author Organization [facility] Address [address] [facility] [address] [place] [address] Support Name Relationship Address Phone LEMUEL CORBETT Guarantor Unknown Reason For Referral No Information Medications Medication SIG (Take, Route, Frequency, Duration) Notes Start Date End Date Status Flagyl 250MG 1 ORAL three times daily; Duration: 7 Tiburcio-MJ 07/08/2012 Active Problems Problem Type SNOMED Code ICD Code Onset Dates Problem Status W/U Status Risk Notes Problem Diverticulosis of colon (finding) (473067597) Diverticulosis of colon (without mention of hemorrhage) (562.10) Active confirmed Other Problem Gynecological examination normal (018722255055993) Routine gynecological examination (V72.31) Active confirmed Diag Problem Dietary management surveillance (681547095) Dietary surveillance and counseling (V65.3) Active confirmed Diag Problem Exercises teaching, guidance, and counseling (579155205) Exercise counseling (V65.41) Active confirmed Diag Plan Of Treatment No Information Insurance Providers Payer Name Payer Address Payer Phone Subscriber Number Group Number Insured Name Patient Relationship to Insured Coverage Start Date Coverage End Date BS MEDICARE PPO [address] [place] [address] [id number] LEMUEL CORBETT Self - patient is the insured
--- OUTSIDE RECORDS SUMMARY | 2025-07-22 09:16 | XMS_ITS | Encounter Summary ---
Author Organization [facility] Address [address] [facility] [address] [place] [address] Phone Care Team Providers Care Padding Machine Operator Name Role Phone Jaspal Albrecht MD Primary Care P rovider Encounter Details Date Type Department Care Team (Late st Contact Info) Description 07/22/2018 Procedure Pass [facility] [address] [place] [address] Social History Tobacco Use Types Packs/Day Years [...] on filedocumented in this encounter Care Teams Padding Machine Operator Relationship Specialty Start Date End Date Jaspal Albrecht MD [address] [place] [address] PCP - General Pulmonary Disease 07/14/18 documented as of this encounter Additional Source Comments The information contained in this document represents components of the legal health record. It is not the complete legal health record.[facility]
--- OUTSIDE RECORDS SUMMARY | 2025-07-22 09:16 | XMS_ITS | Clinical Summary ---
Author Organization [facility] Address [address] [address] Phone Care Team Providers Care Information Systems Administrator Name Role Phone Jaspal Albrecht MD Primary [...] - 1-dose 75+ series) 2018 COVID-19 VACCINE (2 2023-2 5 season) 2024 07/28/2021 INFLUENZA VACCINE (#1) 2025 HEPATITIS A VACCINES Aged Out No long [...] this topic Medical Devices Implanted Type Area Distribution Systems Serviceperson Device Identifier Shelf Expiration Date Model / Serial / Lot Mesh Synthetic 45ack1hm Abdominal Partially Absorbable Rectangle Polypropylene Ultrapro Bx/3ea - [id number] Implanted:Qty: 1 on 10/05/2018 by Rl Gottlieb MD, MPH at [facility] STANDARD Left: Inguinal JNJ [employer] / DIVISION OF J 09/09/2023 [id number] / / [id number] Insurance MEDICARE PPO BLUE REPLACEMENT MEDICARE PPO BLUE REPLACEMENT Advance Directives For more information, please contact: [phone] (9AM - 5PM [facility], Friday-[facility]) * Full Code (Presumed) (Latest Code Status on File) Date Activated Date Inactivated Comments 10/05/2018 6:35 AM 10/05/2018 2:29 PM Care Teams Information Systems Administrator Relationship Specialty Start Date End Date Jaspal Albrecht MD [address] [place] [address] PCP - General Pulmonary Disease 07/14/18 Additional Source Comments The information contained in this document represents components of the legal health record. It is not the complete legal health record.[facility]
== END 2025-07-22 09:23 | disposition home or self-care (01) ==
LOC: HO.HOS 08:37
PROVIDERS: Visit Provider Physician Assistant
DX: S82.002A Unspecified fracture of left patella, initial encounter for closed fracture (principal)
CPT/HCPCS: 99213

== ENCOUNTER → 2025-07-22 08:39 | Outpatient (BNV) | payer MEDICARE, SELFPAY | PROVIDERS: Visit Provider Radiology Diagnostic Radiology | DX: M17.12 Unilateral primary osteoarthritis, left knee (principal) | CPT/HCPCS: 73560 ==

== ENCOUNTER 2025-08-09 15:10 | Outpatient (AMB) | payer MEDICARE, SELFPAY ==
[2025-08-09 15:11] VITALS: BP 120/70; PULSE 76; O2SAT 96; BMI 31.8
--- NOTE | 2025-08-09 15:11 | A.OFFVIS_ITS ---
Vital Signs 08/09/25 15:11 Height 4 ft 11 in Weight 157 lb 10.088 oz BMI 31.8 BP 120/70 Blood Pressure Location Lt brachial Position Sitting Pulse 76 Pulse Source Pulse Oximeter Pulse Oximetry (%) 96 Oxygen Delivery Method Room Air Intake Visit Reasons: chronic bronchitis Accompanied by: Self / Same As Patient Allergies Sulfa (Sulfonamide Antibiotics) Allergy (Severe, Verified 07/22/25 08:53) Rash sulfamethoxazole (From Bactrim) Allergy (Intermediate, Verified 08/09/25 15:14) Unknown trimethoprim (From Bactrim) Allergy (Intermediate, Verified 08/09/25 15:14) Unknown HPI Comments Details: The patient is an 80 year woman with known history of asthma. The patient had been followed closely by a local scoop operator who since retired. Patient states that overall she has been doing very well from a respiratory status. She does have her occasional flare-up does require an antibiotics and rednisone. she does have a maintenance inhaler, Bevespi. She does use it as needed basis. Overall the patient is very functional. Denies any underlying respiratory Symptoms at this time. on examination the patient does have some minimal left base. Therefore will go ahead and request a chest x-ray this time. Clinically the patient is doing well without any symptoms. Will probably have her do a spirometry during the next visit. otherwise patient is without any other complaints. I do believe that she will benefit from a different inhaler. Although right now she still has to Bevespi inhalers at home. Therefore will continue to use which she has available specially since she is doing well from a respiratory status at this time. Will follow-up in 4-6 months. If the patient d evelops any worsening symptoms prior to that she will call for an earlier assessment. 07/30/2024 the patient is here for a follow-up visit. The patient is still not feeling well. Apparently several weeks ago she started developing URI like symptoms. She was evaluated and given a course of antibiotics. Then she did follow-up with Pulmonary. She did have some wheezing in an asthma exacerbation secondary to her likely viral syndrome in that point she was placed on prednisone. When she went on prednisone her symptoms improved dramatically. She did feel better. She also continue her respiratory therapy. However then she completed the prednisone her symptoms have slowly coming back. She is concerned she is going to going backwards. She is coughing productive in nature. She did finish a course of Augmentin already. She has not taking any antibiotics to cover atypicals. Therefore a Z-Basilio would be reasonable for her. She does have some wheezing on examination. Does have prolonged expiratory phase but otherwise stable. I did review her last chest x-ray that she had back in 07/15/2024 demonstrating no acute disease which is reassuring. 01/31/2025 the patient is here for a pulmonary follow-up visit. Since we last spoke the patient developed COVID-19 for the 1st time. She was very ill initially stayed home and therefore couple days. Then she went to see her primary care where she was diagnosed with COVID-19. The patient was having worsening cough. Also some chest tightness. The patient also complained of loss of taste and smell and ultimately started getting some dizziness likely consistent with vertigo. She went to followed up with the primary care doctor. Apparently she has vertigo secondary to the COVID-19. She is in the process of starting vestibular therapy. Her cough is somewhat better. She had call the office we center course of doxycycline. She did take it although she still has some congestion. Her respiratory exam is diminished. She still having some post exhalation coughing. She does not like the Breo. Does not feel like it is working for. Therefore, will switch over to Breztri and also will provide her with a Z-Basilio to complete treating her lower respiratory infection. The patient will go for chest x-ray today. I will call her if there is any abnormalities otherwise will follow-up in 4 months. If she has any issues prior to that she will coughing earlier assessment. 08/09/2025 the patient is here for pulmonary follow-up visit. The patient is grieving the loss of her brother. Just about a week ago. She has not been sleeping well. The patient overall feels well from a respiratory status. She has been using the Breztri inhaler has been affecting beneficial. She does rinse well after using it. Denies any adverse effects to it. No visual changes. The patient had been sick during the last visit and she did require prednisone and a brief antibiotic. We did check an x-ray. I did review it. It appears that her lung capacity is good. The gastric bubble was a little bit central lines suggesting the possibility of reflux disease. Therefore we talked about the reflux diet. The patient should also sleep elevated. No other findings on the x-ray of any concern. The patient will continue with current respiratory therapy. Will give her some melatonin for sleep. She is going to try to cut down on the Klonopin since it has given her poor sleep. She will follow-up in 6-8 months if she has any issues prior to that she can always call for further recommendations. [facility] Medical History (Updated 06/14/25 @ 14:32 by Paloma Cason PA-C) Bronchitis Asthma Chest crackles Social History Alcohol intake: current Alcohol intake frequency: holidays/special occasions only Patient Tobacco Use Status: Never used Tobacco Current occupational status: retired Current occupation: left hand dominant Review of Systems Const Denies fever(s) Eyes Reports no additional complaints ENT Reports nasal congestion Card Denies chest pain Resp Reports chest congestion, Reports cough and Reports wheezing Musc Reports no additional complaints Skin/Breast Denies rash Neuro Reports no additional complaints Aller/Immun Reports wheezing Physical Exam Vital Signs: Last Vital Signs Pulse 76 08/09/25 15:11 BP 120/70 08/09/25 15:11 Pulse Ox 96 08/09/25 15:11 Oxygen Delivery Method Room Air 08/09/25 15:11 BMI result Body Mass Index 31.8 Const General: comfortable HEENT Head: Yes normocephalic Neck Neck: Yes supple Chest Chest palpation & inspection: normal inspection of the chest Resp Effort & Inspection: normal respiratory effort and prolonged expiratory phase Auscultation: no wheezes and diminished lung sounds Cardio Heart sounds: S1 normal heart sound present and S2 normal heart sound present GI Palpation (GI): Soft to palpation Skin General skin exam: no rashes or lesions noted Extrem General: Yes no clubbing, cyanosis or edema Assessment & Plan Assessment & Plan (1) Asthma: Code(s): J45.909 - Unspecified asthma, uncomplicated Category: Medical Qualifiers: Asthma complication type: with acute exacerbation Asthma persistence: persistent Asthma severity: moderate Qualified Code(s): J45.41 - Moderate persistent asthma with (acute) exacerbation (2) Cough: Code(s): R05.9 - Cough, unspecified Category: Medical Qualifiers: Cough type: subacute Qualified Code(s): R05.2 - Subacute cough (3) Bronchitis: Code(s): J40 - Bronchitis, not specified as acute or chronic Category: Medical Plan continue Breztri CARLOS as needed CXR F/u 6-8 months or sooner if worsening symptoms Orders: Orders XR chest 2V Today J45.41 - Moderate persistent asthma with (acute) exacerbation Medications: New melatonin 5 mg PO BEDTIME PRN 30 tabs 7RF sleep 30 days Coding Level of Care Code Est Pt Level 4 (59947) Complex EM visit Add On G2211 Diagnoses Moderate persistent asthma with acute exacerbation J45.41 Asthma complication type: with acute exacerbation Asthma persistence: persistent Asthma severity: moderate Subacute cough R05.2 Cough type: subacute Bronchitis J40 Time Spent (min) 16
--- OUTSIDE RECORDS SUMMARY | 2025-08-09 16:31 | XMS_ITS | Encounter Summary ---
Author Organization [facility] Address [address] [place] [address] Phone Care Team Providers Care Grants Manager Name Role Phone Jaspal Albrecht MD Primary Care P rovider Encounter Details Date Type Department Care Team (Late st Contact Info) Description 07/22/2018 Procedure Pass [facility] [address] [place] [address] Social History Tobacco Use Types Packs/Day Years [...] on filedocumented in this encounter Care Teams Grants Manager Relationship Specialty Start Date End Date Jaspal Albrecht MD [address] [place] [address] PCP - General Pulmonary Disease 07/14/18 documented as of this encounter Additional Source Comments The information contained in this document represents components of the legal health record. It is not the complete legal health record.[facility]
--- OUTSIDE RECORDS SUMMARY | 2025-08-09 16:31 | XMS_ITS | Clinical Summary ---
Author Organization [facility] Address [address] [place] [address] Phone Care Team Providers Care Curing Room Supervisor Name Role Phone Jaspal Albrecht MD Primary [...] VACCINE (1 - 1-dose 75+ series) 2018 INFLUENZA VACCINE (#1) 2025 COVID-19 VACCINE (2 - 2024-2 6 season) 2025 07/28/2021 HEPATITIS A VACCINES Aged Out No [...] this topic Medical Devices Implanted Type Area Database Operator Device Identifier Shelf Expiration Date Model / Serial / Lot Mesh Synthetic [id number] Abdominal Partially Absorbable Rectangle Polypropylene Ultrapro Bx/3ea - [id number] Implanted:Qty: 1 on 10/05/2018 by Rl Gottlieb MD, MPH at [facility] STANDARD Left: Inguinal JNJ ETHICON / DIVISION OF J 09/09/2023 [id number] / / [id number] Insurance MEDICARE PPO BLUE REPLACEMENT MEDICARE PPO BLUE REPLACEMENT Advance Directives For more information, please contact: [phone] (9AM - 5PM [facility], Friday-[facility]) * Full Code (Presumed) (Latest Code Status on File) Date Activated Date Inactivated Comments 10/05/2018 6:35 AM 10/05/2018 2:29 PM Care Teams Curing Room Supervisor Relationship Specialty Start Date End Date Jaspal Albrecht MD [address] [place] [address] PCP - General Pulmonary Disease 07/14/18 Additional Source Comments The information contained in this document represents components of the legal health record. It is not the complete legal health record.[facility]
--- OUTSIDE RECORDS SUMMARY | 2025-08-09 16:31 | XMS_ITS | Encounter Summary ---
Author Organization [facility] Address [address] [facility] [address] [place] [address] Phone Care Team Providers Care Mirror Department Supervisor Name Role Phone Jaspal Albrecht MD Primary Care P rovider Encounter Details Date Type Department Care Team (Late st Contact Info) Description 07/22/2018 Procedure Pass [facility] [address] [place] [address] Social History Tobacco Use Types Packs/Day Years [...] on filedocumented in this encounter Care Teams Mirror Department Supervisor Relationship Specialty Start Date End Date Jaspal Albrecht MD [address] [place] [address] PCP - General Pulmonary Disease 07/14/18 documented as of this encounter Additional Source Comments The information contained in this document represents components of the legal health record. It is not the complete legal health record.[facility]
--- OUTSIDE RECORDS SUMMARY | 2025-08-09 16:31 | XMS_ITS | Encounter Summary ---
Author Organization [facility] Address [address] [place] [address] Phone Care Team Providers Care Direct Sales Representative Name Role Phone Jaspal Albrecht MD Primary Care P [facility] Reason for Referral * MRI/CAT Scan - Closed Specialty Diagnoses / Procedures Referred By Contac t Referred To Contact Procedures CT Abdomen/Pelvis Outside (No Interpretation) Lubna Holloway MD Phone: tel: fax: mailto:[email or web address] Referral ID Status Reason Start Date Expiration Date Visits Re quested Visits Authorized [id number] Closed 07/22/2018 07/22/2019 1 1 * MRI/CAT Scan - Closed Specialty Diagnoses / Procedures Referred By Contac t Referred To Contact Procedures CT Abdomen/Pelvis Outside (No Interpretation) Lubna Holloway MD Phone: tel: fax: mailto:[email or web address] Referral ID Status Reason Start Date Expiration Date Visits Re quested Visits Authorized [id number] Closed 07/22/2018 07/22/2019 1 1 * MRI/CAT Scan - Closed Specialty Diagnoses / Procedures Referred By Contac t Referred To Contact Procedures CT Abdomen/Pelvis Outside (No Interpretation) Lunba Holloway MD Phone: tel: fax: mailto:[email or web address] Referral ID Status Reason Start Date Expiration Date Visits Re quested Visits Authorized [id number] Closed 07/22/2018 07/22/2019 1 1 Encounter Details Date Type Department Care Team (Late st Contact Info) Description 07/22/2018 Transcribe Orders [facility] [address] [place] [address], [place] [address] Manuel [email or web address] Social History Tobacco Use Types Packs/Day Years [...] (No Interpretation) (07/22/2018 12:45 AM EDT) Narrative [facility] - 07/22/2018 9:34 AM EDT This [...] only and not for interpretation. us Lubna Holloway MD IMG OUTSIDE IMAGING W/OUT [...] on filedocumented in this encounter Care Teams Direct Sales Representative Relationship Specialty Start Date End Date Jaspal Albrecht MD [address] [place] [address] PCP - General Pulmonary Disease 07/14/18 documented as of this encounter Additional Source Comments The information contained in this document represents components of the legal health record. It is not the complete legal health record.[facility]
--- OUTSIDE RECORDS SUMMARY | 2025-08-09 16:31 | XMS_ITS | Encounter Summary ---
Author Organization [facility] Address [address] [place] [address] Phone Care Team Providers Care Engraver Picture Name Role Phone Jaspal Albrecht MD Primary Care P rovider Reason for Referral * MRI/CAT Scan - Closed Specialty Diagnoses / Procedures Referred By Contac t Referred To Contact Procedures CT Head Outside (No Interpretation) Rl Gottlieb MD, MPH Phone: tel: fax: mailto:[email or web address] Referral ID Status Reason Start Date Expiration Date Visits Re quested Visits Authorized [id number] Closed 09/03/2018 09/03/2019 1 1 * MRI/CAT Scan - Closed Specialty Diagnoses / Procedures Referred By Contac t Referred To Contact Procedures CT Abdomen Outside (No Interpretation) Rl Gottlieb MD, MPH Phone: tel: fax: mailto:[email or web address] Referral ID Status Reason Start Date Expiration Date Visits Re quested Visits Authorized [id number] Closed 09/03/2018 09/03/2019 1 1 Encounter Details Date Type Department Care Team (Late st Contact Info) Description 09/03/2018 Transcribe Orders [facility] [address] [place] [address] Carlie [email or web address] Social History Tobacco Use Types Packs/Day Years [...] (No Interpretation) (06/29/2012 12:00 AM EDT) Narrative [facility] - 09/03/2018 5:12 PM EDT This study is for PACS storage only and not for interpretation. Rl Gottlieb MD, MPH IMG OUTSIDE IMAGIN G W/OUT INTERPRETATION Final Result Performing Organization Address [facility] de Phone Number [facility] * CT Head Outside (No Interpretation) (09/08/2006 12:00 AM EST) Narrative [facility] - 09/03/2018 5:12 PM EDT This study is for PACS storage only and not for interpretation. Rl Gottlieb MD, MPH IMG OUTSIDE IMAGIN G W/OUT INTERPRETATION Final Result Performing Organization Address [facility] de Phone Number [facility] documented in this encounter Visit Diagnoses Not on filedocumented in this encounter Care Teams Engraver Picture Relationship Specialty Start Date End Date Jaspal Albrecht MD [address] [place] [address] PCP - General Pulmonary Disease 07/14/18 documented as of this encounter Additional Source Comments The information contained in this document represents components of the legal health record. It is not the complete legal health record.[facility]
--- OUTSIDE RECORDS SUMMARY | 2025-08-09 16:31 | XMS_ITS | Encounter Summary ---
Author Organization [facility] Address [address] [facility] [address] [place] [address] Phone Care Team Providers Care Associate Professor Of Education Name Role Phone Jaspal Albrecht MD Primary Care P rovider Encounter Details Date Type Department Care Team (Late st Contact Info) Description 10/05/2018 Procedure Pass [facility] Periop [address] [place] [address] Social History Tobacco Use Types Packs/Day Years [...] on filedocumented in this encounter Care Teams Associate Professor Of Education Relationship Specialty Start Date End Date Jaspal Albrecht MD [address] [place] [address] PCP - General Pulmonary Disease 07/14/18 documented as of this encounter Additional Source Comments The information contained in this document represents components of the legal health record. It is not the complete legal health record.[facility]
--- OUTSIDE RECORDS SUMMARY | 2025-08-09 16:31 | XMS_ITS | Encounter Summary ---
Author Organization [facility] Address [address] [facility] [address] [place] [address] Phone Care Team Providers Care Blood Bank Calendar Control Clerk Name Role Phone Jaspal Albrecht MD Primary Care P rovider Encounter Details Date Type Department Care Team (Late st Contact Info) Description 07/22/2018 Procedure Pass [facility] [address] [place] [address] Social History Tobacco Use Types Packs/Day Years [...] on filedocumented in this encounter Care Teams Blood Bank Calendar Control Clerk Relationship Specialty Start Date End Date Jasapl Albrecht MD [address] [place] [address] PCP - General Pulmonary Disease 07/14/18 documented as of this encounter Additional Source Comments The information contained in this document represents components of the legal health record. It is not the complete legal health record.[facility]
--- OUTSIDE RECORDS SUMMARY | 2025-08-09 16:32 | XMS_ITS | Data Portability ---
Author Organization [facility] Steven Esparza [facility], [facility] Address [address] [place] [address] Assessment No assessment recorded. Plan of Treatment Reminders Order Date Submit Date Provider Last Modified By Organization Details Last Modified Time Details Appointments None record ed. Lab None record ed. Referral None record ed. Procedures None record ed. Surgeries None record ed. Imaging XR, knee, 4 or more view - rm 1 left knee 4v 025 05/25/20 [email or web address] [employer], [address] [facility], [address], [address], 11:25:16 Medication Orders None record ed. Patient TargetsNo targets recorded. Patient InstructionsNo instructions recorded. Reason for Referral None Reported. Results Created Date Observation Date Name Description Value Unit Range Abnormal Flag Note LastModifiedBy Organization Detail LastModifiedTime 05/25/2005/25/2025 XR, knee, 4 or more view http:/ [email or web address] ?Encry pted=s hAaTro YD8dLq bEUv6g %2BXZw aYqtaq 0bqfl% 2Fg9IQ a4ajBk vP9nXo QUaueC m3YtLR FvZlgJ JJ8mAn HZtai3 1y2151 AC0Kla XqDV6O lKiQtr MwF INTERFACE [facility] [address], [place], [address], 05/25/2025 08:45:16 07/16/20 25 05/25/2025 XR, knee, 4 or more view http:/ [email or web address] ?Encry pted=s hAaTro YD8dLq bEUv6g %2BXZw aYqtaq 0bqfl% 2Fg9IQ a4ajBk vP9nXo QUaueC m3YtLR FvZlgJ JJ8mAn HZtai3 8b5667 AC0Kla XqDV6O lKiQtr MwF INTERFACE [facility] [address] [facility] [address], [place], [address], 05/25/2025 08:45:17 Result Notes Documentation Provider Name and Address Organization Details Recorded Time Xr, Knee, 4 Or More View : [email or web address]? Encrypted=zeLqQxoRA7jGliU Uv6g%3RIIqyFvyyn3fsbq%2Fg 1DDt3psUwrZ9wHjGFkekEm5Pb KYVjJztDDL8wYlLLpcq65q928 7GI5UajYtCG8XoLbJefZpV Not Available [facility] 05/25/2025 08:45: 16 Xr, Knee, 4 Or More View : [email or web address]? Encrypted=yaAkJccOQ6vElpO Uv6g%1LEGwnIdjlg9xqfh%2Fg 7ZVx9njHndA5oJrEYccyEq2Nw OWBeFlsKER0hApEHmfd01i140 2PT9DdoXrCE7AtPfIzdZnE Not Available [facility] 05/25/2025 08:45: 17 Medical Equipment None Reported. Vitals Date Recorded Body height Body mass index (BMI) Body weight Provider Name and Address Organization Details Last Updated DateTime 05/25/2025 149.86 cm 32.1 kg/m2 58463.19 g Juan Jose Vargas [place] - [facility] 05/25/2025 08:35:07 Social History None recorded. Functional Status None recorded. Mental Status None recorded. Family History Nothing Reported. Medical History No medical history recorded. Gynecological HistoryNo gynecological history recorded. Obstetrics History GPAL:G 0 P 0 0 0 0 Past Encounters Encounter ID Performer Location Encounter Start Date Encounter Closed Date Diagnosis/Indication Diagnosis SNOMED-CT Code Diagnosis ICD10 Code Diagnosis IMO Codes Diagnosis Note [id number] Radha Cartwright PA-C [facility] [address] [place] [address] 05/25/2025 08:10:17 06/02/2025 14:22:20 Pain of left knee joint 7326987461 60860 M25.562 972879 Fracture of bone 6513689 04 T14.8XXA 98913 Closed fra cture patella, vertical 705491325 S82.025A 8324612 Health Concerns Section Related Observation LastModified by Organization Detai ls LastModified Time None Recorded Concern Status LastModified by Organization Details LastModified Time None Recorded Advance Directives Directive None Recorded Payers Insurance Date Sequence Insurance Name Policy Number Policy Kaur Covered Member ID Kaur Member ID Guarantor Name 06/10/2025 1 [facility]: MEDICARE PPO BLUE (MEDICARE REPLACEMENT PPO) [id number] Lina East [id number] Lina East Notes Date Note Type Note Provider Name and Address Organization Details Recorded Time 05/25/2025 text/html Patient seen under general supervision of Dr. Duarte who was available but who did not see the patient.HPI: Patient is an 80-year-old female who presents as urgent care walk-in today with complaint of left knee pain after she fell a couple of weeks ago. She landed directly on her left knee. She had some bruising and swelling at the time but continued ambulating as tolerated. She is treated by the [facility] treatment [facility] for knee arthritis with cortisone injections, not do for this until July. She presents today as she is still having pain and stiffness in the knee. Denies numbness or tingling or other injuriesPast family, medical, social history and review of systems has been reviewed, updated and is located in the patient s chart.Examination: The patient is well appearing and in no apparent distress. Alert and oriented x3. Gait is symmetric. Left knee skin intact, no erythema, mild diffuse edema about the knee, no ecchymosis today. She has point tenderness to palpation overlying the patella, particularly at the lateral aspect of the patellar region. Knee range of motion 0-100 limited by pain in full flexion. No laxity about the knee. Distally neuromotor intact, sensation intact throughoutX-rays ordered, obtained and reviewed at [facility] quitting 3 views of the left knee which demonstrates vertically oriented lateral patella fracture, this is mainly effecting a lateral osteophyte in the lateral border of the patella. There is significant arthritic changes throughout the knee. No other fractures or dislocations appreciatedImpressi on: 80-year-old female with left lateral patella fracture, vertically oriented, sustained at the beginning of MayPlan: His cast findings with the patient. At this point I recommended nonsurgical treatment for this to include continued ambulation as tolerated. We will provide a knee brace for stability while she is ambulating, she was instructed to remove this for bedtime and showering as well as swimming if desired. She will follow-up in 3-4 weeks for new x-rays and recheck, sooner if any issues arise. This should heal on its own over time. She should be able to receive her next cortisone injections in July. All questions answeredThe patient is ambulatory, but has weakness and/or instability of their extremity which requires stabilization from this semi-rigid/rigid orthosis to improve their function.Verbal and written instructions for the use and application of this item were given. Patient was instructed that should the brace result in increased pain, decreased sensation, increased swelling or an overall worsening of their medical condition, to pelase contact our office immediately.[facility] speech recognition narcotics and/or vice detective software was used to create portions of this document. An attempt at proofreading has been made to minimize errors. Please call for corrections. Radha Cartwright PA-C [address], [place], [address], [facility] - [facility] 05/25/2025 11:16:42 OBGyn Episode No OBEpisode recorded.
--- OUTSIDE RECORDS SUMMARY | 2025-08-09 16:32 | XMS_ITS | Patient Health Record ---
Author Organization [facility] Address [address] [facility] [address] [place] [address] Support Name Relationship Address Phone LEMUEL CORBETT Guarantor Unknown Reason For Referral No Information Medications Medication SIG (Take, Route, Frequency, Duration) Notes Start Date End Date Status Flagyl 250MG 1 ORAL three times daily; Duration: 7 Tiburcio-MJ 07/08/2012 Active Problems Problem Type SNOMED Code ICD Code Onset Dates Problem Status W/U Status Risk Notes Problem Diverticulosis of colon (finding) (102581062) Diverticulosis of colon (without mention of hemorrhage) (562.10) Active confirmed Other Problem Gynecological examination normal (589836956047537) Routine gynecological examination (V72.31) Active confirmed Diag Problem Dietary management surveillance (073597935) Dietary surveillance and counseling (V65.3) Active confirmed Diag Problem Exercises teaching, guidance, and counseling (904051989) Exercise counseling (V65.41) Active confirmed Diag Plan Of Treatment No Information Insurance Providers Payer Name Payer Address Payer Phone Subscriber Number Group Number Insured Name Patient Relationship to Insured Coverage Start Date Coverage End Date BS MEDICARE PPO [address] [place] [address] [id number] LEMUEL CORBETT Self - patient is the insured
== END 2025-08-09 15:32 | disposition home or self-care (01) ==
LOC: HO.HPS 15:10
PROVIDERS: Visit Provider Hospitalist
DX: J45.41 Moderate persistent asthma with (acute) exacerbation (principal); R05.2 Subacute cough; J40 Bronchitis, not specified as acute or chronic
CPT/HCPCS: 99214; G2211

== ENCOUNTER → 2025-08-09 15:10 | Outpatient (BNVA) | payer MEDICARE, SELFPAY | PROVIDERS: Visit Provider Hospitalist | DX: J45.41 Moderate persistent asthma with (acute) exacerbation (principal); R05.2 Subacute cough; J40 Bronchitis, not specified as acute or chronic | CPT/HCPCS: 99212 ==